=== PATIENT | female | born 1975 | race Caucasian/White ===

== ENCOUNTER 2018-09-05 00:56 | Inpatient (IN) ==
--- NOTE | 2018-09-05 02:02 | Emergency Department Note ---
Disposition Clinical Impression: Abscess of skin or subcutaneous tissue Qualifiers: Site of cutaneous abscess: extremity Site of cutaneous abscess of extremity: hand Laterality: right Qualified Code(s): L02.511 - Cutaneous abscess of right hand Cellulitis Qualifiers: Site of cellulitis: extremity Site of cellulitis of extremity: upper extremity Laterality: right Qualified Code(s): L03.113 - Cellulitis of right upper limb Disposition: Admitted As Inpatient Condition: Fair Time of Disposition: 05:30 General Adult HPI - General Chief complaint: ED Skin/Abscess/Foreign Body Stated complaint: Infected R hand Time Seen by Provider: 09/05/18 01:55 Source: patient Limitations: no limitations Nursing Notes Reviewed: Yes Vital Signs Reviewed: Yes - History of Present Illness HPI Narrative: 43-year-old female, with past medical history of hepatitis C, and a remote history of intravenous drug use of methamphetamine presents with a 2 day history of severe right hand pain, swelling, and redness. She states that she does not recall any open wounds to her hands, bug bites, and denies any recent drug use. She endorses fevers, chills, nausea. She endorses decreased range of motion in her right digits and hand. She denies vomiting,shortness of breath. Pain Scale: 10 - Related Data Previous Rx's Medication Instructions Recorded Loratadine/Pseudophed (12 HR) 1 each PO BID #14 tab.er.12h 06/19/17 [Claritin D (12HR)] Polymyxn-B/Trimeth Opth Drops 1 drop RIGHT EYE QID 7 Days #1 06/19/17 [Polytrim Opth Drops] bottle Cetirizine HCl [Zyrtec] 10 mg PO DAILY #30 tablet 06/27/17 Ciprofloxacin OPTH Soln [Ciloxan 2.5 drop BOTH EYES Q4H #1 bottle 06/27/17 OPTH Soln] Fluticasone Propionate Nasal 16 gm NS DAILY #1 bottle 06/27/17 [Flonase] Cephalexin [Keflex] 1,000 mg PO BID #14 capsule 06/22/18 Allergies Allergy/AdvReac Type Severity Reaction Status Date / Time No Known Allergies Allergy Verified 09/05/18 01:27 All systems ED: reviewed and negative except as stated. Constitutional: Reports: fever, chills, night sweats Cardiovascular: Denies: chest pain, palpitations Respiratory: Denies: cough, dyspnea Gastrointestinal: Reports: nausea. Denies: abdominal pain, vomiting Integumentary: Reports: other (Swelling and redness to right hand) Past Medical History - Past Medical History Medical history: Reports: hepatitis, liver disease Psychiatric history: Reports: no psych history - Social History Smoking Status: Current every day smoker Smokeless Tobacco Status: No Alcohol use: Reports: none Drug use: Reports: none Physical Exam GENERAL EXAM Vital signs noted, please see nurses notes. General: Well-developed, well-nourished patient lying in bed who appears non- toxic. Head: Atraumatic, normocephalic. Eyes: Sclera anicteric. ENT: Mucous membranes moist. Heart: Regular rate and rhythm without appreciable murmur, gallops, or rubs. Lungs: Normal respiratory pattern without distress, lungs clear to auscultation b/l. Abdomen: Soft, non-tender, non-distended, no guarding or peritoneal signs. Skin: No signs of tract cazares, there is significant erythema, to the right 3rd digit and right hand. Skin is hot. There are 2 open sores over the MCP of the third digit Neurologic: Awake and alert with normal speech and mental status. Pupils are eq ual. Moves all extremities equally well. No focal deficits or lateralizing signs. Psychiatric: Mood and affect appropriate. Musculoskeletal: Significant, nonpitting edema to the right upper extremity from the digits to the elbow. Range of motion is decreased in the right upper extremity due to pain No signs of DVT. - General Limitations: no limitations General appearance: alert Course - Reevaluation(s) Reevaluation #1: Patient has increased nausea, will give her 2 more milligrams of IV Zofran at this time. Time: 04:54 - Consultations Consultation #1: Spoke with Dr. Tse, is agreed to see the patient in the morning, once admitted to medicine Time: 04:55 Vital Signs Temperature 98.7 F 09/05/18 01:24 Pulse Rate 97 09/05/18 01:24 Respiratory Rate 18 09/05/18 01:24 Blood Pressure 128/84 09/05/18 01:24 O2 Sat by Pulse Oximetry 100 09/05/18 01:24 Temperature 98.1 F 09/05/18 06:29 Pulse Rate 87 09/05/18 06:29 Respiratory Rate 16 09/05/18 06:29 Blood Pressure 125/83 09/05/18 06:29 O2 Sat by Pulse Oximetry 100 09/05/18 06:29 Oxygen Delivery Oxygen Delivery Room Air Medical Decision Making - [facility] Narrative Medical decision making narrative: Patient was greeted upon her arrival to the emergency department. History and physical exam were obtained from the patient. Blood work was obtained from the patient including a lactate, blood cultures, and CBC. Tenosynovitis of the extensor tendon on the third digit is high on the differential. A CT scan of the right upper extremity will be ordered to rule out a more extensive infection. We will provide her with 1 mg of IV Dilaudid, Zofran for nausea, IV Zosyn, IV vancomycin,. The patient will be admitted to the hospital for IV antibiotics. CT scan revealed a 4.8 x 2.3 x 1 cm abscess from the distal metacarpal to the distal phalanx of the third digit. Case was discussed with Dr. Tse, orthopedics and he has agreed to see the patient in the morning. She will be admitted admitted to the hospitalist service for further management. - Medical Records Medical records reviewed: Yes I reviewed the patient's medical records. - Lab Data Lab results reviewed: Yes I reviewed the patient's lab results. Result diagrams: 09/05/18 02:40 09/05/18 02:40 Lab Results 09/05/18 09/05/18 09/05/18 Range/Units 02:40 02:40 02:40 WBC 13.6 H (4.3-11.1) K/mcL RBC 3.85 (3.82-4.97) M/mcL Hgb 11.7 (11.5-15.4) g/dL Hct 35.4 (35.3-44.9) % MCV 91.9 (83.0-100.0) fL MCH 30.4 (28.0-33.3) pg MCHC 33.1 (31.6-35.5) g/dL RDW 13.5 (11.5-14.5) % Plt Count 217 (140-400) K/mcL MPV 9.9 (9.4-12.4) fL Immature Gran % 0.4 (0-4) % Seg Neutrophils % 71.7 % Lymphocytes % 19.6 % Monocytes % 7.0 % Eosinophils % 1.0 % Basophils % 0.3 % Neutrophils # 9.8 H (1.6-8.9) K/mcL Lymphocytes # 2.7 (0.6-4.6) K/mcL Monocytes # 1.0 (0.0-1.3) K/mcL Eosinophils # 0.1 (0.0-0.6) K/mcL Basophils # 0.0 (0.0-0.2) K/mcL Sodium 138 (136-145) mEq/L Potassium 3.3 L (3.5-5.1) mEq/L Chloride 104 (98-107) mEq/L Carbon Dioxide 27 (23-29) mEq/L BUN 10 (6-20) mg/dL Creatinine 0.67 (0.60-1.20) mg/dL Est GFR ( Amer) > 60 (> 60) Est GFR (Non-Af Amer) > 60 (> 60) BUN/Creatinine Ratio 15 (6-26) Glucose 124 H (70-105) mg/dL Calculated Osmolality 286 (280-300) Lactic Acid 1.5 (0.5-2.2) mmol/L Calcium 8.4 L (8.6-10.3) mg/dL Magnesium 2.0 (1.6-2.6) mg/dL - Radiology Data Radiology results reviewed: Yes I reviewed the patient's radiology results. Upper Extremity CT 09/05/18 02:09 IMPRESSION: 4.8 x 2.3 x 1 cm cm soft tissue abscess superficial to the extensor tendon of the right 3rd finger extends from the level of the distal head of the 3rd metacarpal to the distal diaphysis of the proximal phalanx of the right 3rd finger. D/ / Dorie Diaz MD / Dorie Diaz MD Interpreting Provider: Dorie Diaz MD
[2018-09-05] MEDS ORDERED: *HR* HYDROmorphone (PF) 1 MG/ML SYRINGE IVP ONE (02:04)
[2018-09-05] MEDS ORDERED: Ondansetron 4 MG/2 ML VIAL IVP ONE ×4 (02:05→18:04)
[2018-09-05] MEDS ORDERED: Piperacillin/Tazobactam 3.375 GM in Water for inj. (sterile) 20 ML IVP ONE (02:08)
[2018-09-05] MEDS ORDERED: Isovue-370 500 ML BOTTLE IVP ONE (02:09)
[2018-09-05 02:59] LABS: Basophils % 0.3 %; Eosinophils # 0.1 K/mcL (0.0-0.6); Hematocrit 35.4 % (35.3-44.9); Hemoglobin 11.7 g/dL (11.5-15.4); Immature Granulocytes % 0.4 % (0-4); Lymphocytes # 2.7 K/mcL (0.6-4.6); Lymphocytes % 19.6 %; Mean Corpuscular HGB Conc 33.1 g/dL (31.6-35.5); Mean Corpuscular Hemoglobin 30.4 pg (28.0-33.3); Mean Corpuscular Volume 91.9 fL (83.0-100.0); Mean Platelet Volume 9.9 fL (9.4-12.4); Neutrophils # 9.8 K/mcL (1.6-8.9); Platelet Count 217 K/mcL (140-400); Red Blood Count 3.85 M/mcL (3.82-4.97); Red Cell Distribution Width 13.5 % (11.5-14.5); Segmented Neutrophils % 71.7 %; White Blood Count 13.6 K/mcL (4.3-11.1)
[2018-09-05 03:12] LABS: BUN/Creatinine Ratio 15 (6-26); Blood Urea Nitrogen 10 mg/dL (6-20); Calcium 8.4 mg/dL (8.6-10.3); Carbon Dioxide 27 mEq/L (23-29); Chloride 104 mEq/L (98-107); Glucose 124 mg/dL (70-105); Osmolality,Calculated 286 (280-300); Potassium 3.3 mEq/L (3.5-5.1); Sodium 138 mEq/L (136-145); eGFR For African Americans > 60 (> 60); eGFR For Non-African Americans > 60 (> 60)
[2018-09-05] MEDS ORDERED: 0.9 % Sodium Chloride 1,000 ML IVC ONE (04:32)
[2018-09-05] MEDS ORDERED: 0.9 % Sodium Chloride 1,000 ML IVC SCH ×2 (04:45→05:15)
[2018-09-05] MEDS ORDERED: Naloxone 0.4 MG/ML INJ IVP PRN ×2 (05:11→18:04)
--- NOTE | 2018-09-05 05:29 | Emergency Department Note ---
Disposition Clinical Impression: Abscess of skin or subcutaneous tissue Qualifiers: Site of cutaneous abscess: extremity Site of cutaneous abscess of extremity: hand Laterality: right Qualified Code(s): L02.511 - Cutaneous abscess of right hand Cellulitis Qualifiers: Site of cellulitis: extremity Site of cellulitis of extremity: upper extremity Laterality: right Qualified Code(s): L03.113 - Cellulitis of right upper limb Disposition: Admitted As Inpatient Condition: Fair Time of Disposition: 05:30 General Adult HPI - General Chief complaint: ED Skin/Abscess/Foreign Body Stated complaint: Infected R hand Time Seen by Provider: 09/05/18 01:55 Source: patient Limitations: no limitations Nursing Notes Reviewed: Yes Vital Signs Reviewed: Yes - History of Present Illness Pain Scale: 9 - Related Data Previous Rx's Medication Instructions Recorded Loratadine/Pseudophed (12 HR) 1 each PO BID #14 tab.er.12h 06/19/17 [Claritin D (12HR)] Polymyxn-B/Trimeth Opth Drops 1 drop RIGHT EYE QID 7 Days #1 06/19/17 [Polytrim Opth Drops] bottle Cetirizine HCl [Zyrtec] 10 mg PO DAILY #30 tablet 06/27/17 Ciprofloxacin OPTH Soln [Ciloxan 2.5 drop BOTH EYES Q4H #1 bottle 06/27/17 OPTH Soln] Fluticasone Propionate Nasal 16 gm NS DAILY #1 bottle 06/27/17 [Flonase] Cephalexin [Keflex] 1,000 mg PO BID #14 capsule 06/22/18 Allergies Allergy/AdvReac Type Severity Reaction Status Date / Time No Known Allergies Allergy Verified 09/05/18 01:27 Constitutional: Reports: fever, chills, night sweats Cardiovascular: Denies: chest pain, palpitations Respiratory: Denies: cough, dyspnea Gastrointestinal: Reports: nausea. Denies: abdominal pain, vomiting Integumentary: Reports: other (Swelling and redness to right hand) Past Medical History - Past Medical History Medical history: Reports: hepatitis, liver disease Psychiatric history: Reports: no psych history - Social History Smoking Status: Current every day smoker Smokeless Tobacco Status: No Alcohol use: Reports: none Drug use: Reports: none Physical Exam - General Limitations: no limitations General appearance: alert Course Vital Signs Temperature 98.7 F 09/05/18 01:24 Pulse Rate 97 07/20/19 01:24 Respiratory Rate 18 09/05/18 01:24 Blood Pressure 128/84 09/05/18 01:24 O2 Sat by Pulse Oximetry 100 09/05/18 01:24 Temperature 98.7 F 09/05/18 01:24 Pulse Rate 88 09/05/18 05:00 Respiratory Rate 20 09/05/18 05:00 Blood Pressure 134/96 09/05/18 05:00 O2 Sat by Pulse Oximetry 100 09/05/18 05:00 Oxygen Delivery Oxygen Delivery Room Air Medical Decision Making - Lab Data Lab results reviewed: Yes I reviewed the patient's lab results. Result diagrams: 09/05/18 02:40 09/05/18 02:40 Lab Results 09/05/18 09/05/18 09/05/18 Range/Units 02:40 02:40 02:40 WBC 13.6 H (4.3-11.1) K/mcL RBC 3.85 (3.82-4.97) M/mcL Hgb 11.7 (11.5-15.4) g/dL Hct 35.4 (35.3-44.9) % MCV 91.9 (83.0-100.0) fL MCH 30.4 (28.0-33.3) pg MCHC 33.1 (31.6-35.5) g/dL RDW 13.5 (11.5-14.5) % Plt Count 217 (140-400) K/mcL MPV 9.9 (9.4-12.4) fL Immature Gran % 0.4 (0-4) % Seg Neutrophils % 71.7 % Lymphocytes % 19.6 % Monocytes % 7.0 % Eosinophils % 1.0 % Basophils % 0.3 % Neutrophils # 9.8 H (1.6-8.9) K/mcL Lymphocytes # 2.7 (0.6-4.6) K/mcL Monocytes # 1.0 (0.0-1.3) K/mcL Eosinophils # 0.1 (0.0-0.6) K/mcL Basophils # 0.0 (0.0-0.2) K/mcL Sodium 138 (136-145) mEq/L Potassium 3.3 L (3.5-5.1) mEq/L Chloride 104 (98-107) mEq/L Carbon Dioxide 27 (23-29) mEq/L BUN 10 (6-20) mg/dL Creatinine 0.67 (0.60-1.20) mg/dL Est GFR ( Amer) > 60 (> 60) Est GFR (Non-Af Amer) > 60 (> 60) BUN/Creatinine Ratio 15 (6-26) Glucose 124 H (70-105) mg/dL Calculated Osmolality 286 (280-300) Lactic Acid 1.5 (0.5-2.2) mmol/L Calcium 8.4 L (8.6-10.3) mg/dL Magnesium 2.0 (1.6-2.6) mg/dL - Radiology Data Radiology results reviewed: Yes I reviewed the patient's radiology results. Upper Extremity CT 09/05/18 02:09 IMPRESSION: 4.8 x 2.3 x 1 cm cm soft tissue abscess superficial to the extensor tendon of the right 3rd finger extends from the level of the distal head of the 3rd metacarpal to the distal diaphysis of the proximal phalanx of the right 3rd finger. D/ / Dorie Diaz MD / Dorie Diaz MD Interpreting Provider: Dorie Diaz MD Critical Care Time Critical Care Time: Yes Total Critical Care Time: 35 Attestation: Critical care performed: Time is exclusive of separately billable procedures. Time includes: direct patient care, patient reassessment, coordination of patient care, interpretation of data (laboratory data, radiology data, and respiratory data), review of patient's medical records, medical consultation and documentation of patient care. Procedures included in critical care time: Procedures excluded from critical care time: Attestation Statement - Attestation Attestation: I, Fernando Cai MD, personally evaluated this patient and discussed their management with the resident physician. I reviewed the resident's note and agree with the documented findings, medical decision making, and plan of care. 43-year-old female presents to the emergency department with a complaint of infection of her right hand which started 4 days prior to arrival. She denies any known injury. She states that she just developed a blister on the top of her right middle finger several days ago. Since then she has had increasing pain and swelling and redness with increased size of the blister. Some drainage. She complains of severe pain in the hand and fingers with limited movement due to the pain and swelling. The swelling is also extending up the forearm to the elbow. She states she did have a fever at home yesterday of 102.3. She has been having chills and sweats. She admits to a history of IV drug abuse in the past and states that it has been several months since she used any IV drugs. She also states that she has never injected in her right arm or hand. On examination patient is a well-developed well-nourished female in no acute distress. She is alert and oriented 3. There is no cyanosis or diaphoresis. Breath sounds are clear and equal bilaterally. Heart regular rate and rhythm. Abdomen soft and nontender with normal bowel sounds. Patient has moderate s welling and erythema over the dorsum of the right hand particularly involving the middle finger. There is an area over the proximal phalanx of the right middle finger of blister formation with a small amount of serous drainage. There does seem to be some fluctuance over the third MCP joint area as well. Patient is unable to fully extend her index, middle, and ring fingers and has pain with passive extension. Concern for early extensor tenosynovitis. Labs reviewed. CT showed an abscess superficial to the extensor tendon over the proximal phalanx of the third finger. Blood cultures obtained and IV antibiotics initiated. Dr. Alberts discussed the patient with the orthopedist regional safety manager, Dr. Tse. He recommended admission to the hospitalists and will consult and see the patient this morning. The hospitalist, Dr. Ricketts, was consulted and accepted admission of the patient.
[2018-09-05] MEDS ORDERED: Ketorolac 30 MG/ML VIAL IVP ONE ×3 (05:38→18:04)
[2018-09-05] MEDS ORDERED: *HR* OxyCODONE/APAP 5/325 TABLET PO PRN (05:48)
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
[2018-09-05] MEDS ORDERED: Nicotine 14 MG PATCH.TD24 TD SCH (09:00)
--- NOTE | 2018-09-05 12:37 | Orthopedic Consult Note ---
Date of Encounter: 09/05/18 Time of Encounter: 12:20 History of Present Illness Chief complaint: Right hand pain and swelling HPI: Ms. Peña is a 43 year old [id number] female described a 4-5 day history of increased pain and swelling about the dorsum of the right hand centered over the long finger. Patient states that she started with several small blebs over the dorsum of the index and the long finger. The bleb on the index finger resolved with the long finger got progressively worse to the point she developed massive swelling redness and what appears to be pustule formation. Patient has had progressive difficulty with hand motion. She is admitted for further evaluation and management. Patient denies any trauma to the area. Patient does have a history of substance abuse but denies injecting the right hand. I reviewed the patient's completed history physical examination as well as the completed medical record and imaging studies. Pertinent orthopedic examination reveals a tearful 43-year-old woman in moderate distress secondary to right hand pain. Right hand reveals marked erythema and apparent abscess formation on the dorsum of the hand and the long finger. This is predominantly over the level of the MCP joint extending to the PIP joint. Hand motion is markedly limited due to the pain and swelling. Sensation is grossly intact. White blood cell count is 13.6. ESR and CRP were not performed. CT of the right upper extremity reveals a marked fluid/phlegmon collection on the dorsum of the hand consistent with an abscess. This is centered over the long metacarpal and finger. Impression: Abscess right upper extremity, suspected MRSA Recommendation: Incision and drainage is most appropriate in light of the abscess formation. Discussed with the patient that incision and drainage is utilized to evacuate the majority of the abscess and allow antibiotics to penetrate the surrounding area. We discussed that the surgery is not immediate fix for her problem. Discuss the potential risks and complications of surgery including bleeding, continued infection with need for additional surgery, neurovascular injury, stiffness, blood clots and continued difficulty with the hand in spite of treatment. Patient understands and agrees to proceed with surgery. She has signed informed consent for incision and drainage. We will proceed with surgery today when operating time is available. Thank you very much for allowing me to see and care for Mrs. Peña. Sincerely, Julito Tse,DO Past Med Surg Social Fam HX - Past Medical History Medical history: hepatitis, liver disease Additional medical history: hepatits C Psychiatric history: anxiety, bipolar, depression - Past Surgical History Surgical History: - Social History Smoking Status: Current every day smoker Smokeless Tobacco Status: No Alcohol use: none Drug use: methamphetamine Medications and Allergies Loratadine/Pseudophed (12 HR) [Claritin D (12HR)] 1 each PO BID #14 tab.er.12h 06/19/17 [Rx] Polymyxn-B/Trimeth Opth Drops [Polytrim Opth Drops] 1 drop RIGHT EYE QID 7 Days #1 bottle 06/19/17 [Rx] Cetirizine HCl [Zyrtec] 10 mg PO DAILY #30 tablet 06/27/17 [Rx] Ciprofloxacin OPTH Soln [Ciloxan OPTH Soln] 2.5 drop BOTH EYES Q4H #1 bottle 06/27/17 [Rx] Fluticasone Propionate Nasal [Flonase] 16 gm NS DAILY #1 bottle 06/27/17 [Rx] Cephalexin [Keflex] 1,000 mg PO BID #14 capsule 06/22/18 [Rx] Allergy/AdvReac Type Severity Reaction Status Date / Time No Known Allergies Allergy Verified 09/05/18 01:27 All Systems Reviewed: The remainder of the systems were reviewed and are negative Physical Exam - Constitutional Vitals: Temp Pulse Resp BP Pulse Ox 98.1 F 87 16 125/83 100 09/05/18 06:29 09/05/18 06:29 09/05/18 06:29 09/05/18 06:29 09/05/18 06:29 Results - Labs Result Diagrams: 09/05/18 02:40 09/05/18 02:40 Labs: Abnormal lab results WBC 13.6 K/mcL (4.3-11.1) H 09/05/18 02:40 Neutrophils # 9.8 K/mcL (1.6-8.9) H 09/05/18 02:40 Potassium 3.3 mEq/L (3.5-5.1) L 09/05/18 02:40 Glucose 124 mg/dL (70-105) H 09/05/18 02:40 Calcium 8.4 mg/dL (8.6-10.3) L 09/05/18 02:40 H & H 09/05/18 Range/Units 02:40 Hgb 11.7 (11.5-15.4) g/dL Hct 35.4 (35.3-44.9) % All other labs normal. - Diagnostic results Wrist/Hand CT: image reviewed Consult Discharge Plan - Plan Referrals: NONE,PCP [Primary Care Provider] -
--- NOTE | 2018-09-05 13:33 | Anesthesia Evaluation PreOp ---
Date of Encounter: 09/05/18 Time of Encounter: 13:32 - Past History Planned Operation: RIGHT HAND I&D Cardiac History: Denies any Significant Hx Pulmonary History: Smoker [employer]ER History: Other (POLY & IV DRUG ABUSE, DENIES ANY USE FOR LAST 2 MONTHS) Other Medical History: Hepatic (HEP C) Anesthesia History: No Prior Anesthetic Complications, Past Anesthesia Alcohol Use: none Drug use: methamphetamine Medications and Allergies Loratadine/Pseudophed (12 HR) [Claritin D (12HR)] 1 each PO BID #14 tab.er.12h 06/19/17 [Rx] Polymyxn-B/Trimeth Opth Drops [Polytrim Opth Drops] 1 drop RIGHT EYE QID 7 Days #1 bottle 06/19/17 [Rx] Cetirizine HCl [Zyrtec] 10 mg PO DAILY #30 tablet 06/27/17 [Rx] Ciprofloxacin OPTH Soln [Ciloxan OPTH Soln] 2.5 drop BOTH EYES Q4H #1 bottle 06/27/17 [Rx] Fluticasone Propionate Nasal [Flonase] 16 gm NS DAILY #1 bottle 06/27/17 [Rx] Cephalexin [Keflex] 1,000 mg PO BID #14 capsule 06/22/18 [Rx] Allergy/AdvReac Type Severity Reaction Status Date / Time No Known Allergies Allergy Verified 09/05/18 01:27 - Meds/Allergy Pre-op Review Medications Reviewed: Yes Allergies Reviewed: Yes Anesthesia Results - Labs 09/05/18 02:40 09/05/18 02:40 Anesthesia Exam Vital Signs/O2 Sat, Most Current Temp Pulse Resp BP Pulse Ox 98.1 F 87 16 125/83 100 09/05/18 06:29 09/05/18 06:29 09/05/18 06:29 09/05/18 06:29 09/05/18 06:29 - HEENT Mallampati: I Teeth: Normal, Missing - Cardiac Rhythm: Regular - Pulmonary Breath Sounds: bilateral Clear Anesthesia Assess/Plan ASA Score: 3 Anesthetic Plan: General, Regional Nerve Block Monitoring Plan: Standard Monitors Recovery Plan: PACU
[2018-09-05] MEDS ORDERED: *HR* HYDROmorphone (PF) 1 MG/ML SYRINGE IVP PRN ×2 (13:34→18:04)
[2018-09-05] MEDS ORDERED: *HR* Promethazine 25 MG/ML VIAL IVP PRN ×2 (13:34→18:04)
[2018-09-05] MEDS ORDERED: Albuterol 2.5 MG/3 ML NEBULIZER IH PRN ×2 (13:34→18:04)
[2018-09-05] MEDS ORDERED: *HR* OxyCODONE Immed Rel 5 MG TABLET PO PRN ×2 (13:34→18:04)
[2018-09-05] MEDS ORDERED: Acetaminophen IV 1,000 MG/100 ML INFUS..BTL IVPB ONE ×2 (13:34→18:04)
[2018-09-05] MEDS ORDERED: *HR* Midazolam HCl 2 MG/2 ML VIAL IVP PRN ×2 (13:34→18:04)
[2018-09-05 13:38] LABS: INR 1.1
[2018-09-05 13:40] LABS: Activated Partial Thrombo Time 30.7 Seconds (26.0-36.0)
[2018-09-05] MEDS ORDERED: Ropivacaine/PF 0.5% 30 ML VIAL ONE (14:11)
[2018-09-05 14:17] LABS: Hepatitis B Surface Antigen Nonreactive (Nonreactive)
[2018-09-05] MEDS ORDERED: *HR* FentaNYL (PF) 100 MCG/2 ML VIAL ONE (14:17)
[2018-09-05] MEDS ORDERED: *HR* Midazolam HCl 2 MG/2 ML VIAL ONE (14:17)
[2018-09-05 14:47] LABS: HIV-1&2 Antibody & p24 Ag Nonreactive (Nonreactive); Hepatitis A Antibody IgM Nonreactive (Nonreactive); Hepatitis B Core IgM Nonreactive (Nonreactive)
[2018-09-05 16:03] LABS: Hepatitis C Virus Antibody Reactive (Nonreactive)
--- NOTE | 2018-09-05 16:08 | Anesthesia Procedures ---
Date of Encounter: 09/05/18 Time of Encounter: 16:06 Procedures: Anesthesia - Nerve Block Procedure Date: 09/05/18 Time: 15:15 Checklist: Correct Patient Identifier, Correct procedure Correct side: Right Monitor Applied: EKG, BP, Pulse Oximetry Supplemental Oxygen via Nasal Cannula (L/min): 2 Sedation: Versed (mg): 2 Sedation: Fentanyl (mcg): 50 Indication: Post Op Analgesia Sterile Technique: Yes Ultrasound used: Yes Anatomy identified: Yes Visual spread of Local: Yes Neuro Stimulation: No Smooth Injection of Local: Yes (INCREMENTAL ASPIRATION & INJECTION) Pain with Injection of Local: No Prep: Chlorhexadine Needle: 21 x 100 mm Stimuplex Local: Ropivacaine (0.5%) Volume (cc): 25 Complications: None/effective block
--- NOTE | 2018-09-05 16:09 | Anesthesia Evaluation Post Op ---
Date of Encounter: 09/05/18 Time of Encounter: 17:40 - Discharge PostOp Status: Transfer Patient to floor (Patient's vital signs have been reviewed. Patient is stable postoperatively and has adequately recovered from anesthesia. Patient is determined to have stable airway patency and respiratory function including respiratory rate and oxygen saturation. Patient has a stable heart rate, blood pressure and adequate hydration. Patients mental status is acceptable. Patients temperature is appropriate. Pain and nausea are adequately controlled)
[2018-09-05] MEDS ORDERED: *HR* Propofol 200 MG/20 ML VIAL IVP ONE (16:28)
[2018-09-05] MEDS ORDERED: Dexamethasone 4 MG/ML VIAL ONE (16:33)
[2018-09-05] MEDS ORDERED: Lidocaine -MPF 2% 2 ML VIAL ONE (16:33)
[2018-09-05] MEDS ORDERED: Ondansetron 4 MG/2 ML VIAL ONE (16:33)
[2018-09-05] MEDS ORDERED: Ketorolac 30 MG/ML VIAL ONE (16:48)
--- NOTE | 2018-09-05 17:18 | Operative Note ---
Date of procedure: 09/05/18 Pre-op diagnosis: Abscess right hand Post-op diagnosis: same Procedure: Incision and drainage for abscess right hand and long finger Implants: None Complications: None Anesthesia: GETA, regional (Supraclavicular nerve block) Surgeon: Julito Tse Was there an patient support assistant present: No Estimated blood loss (cc): 4 Tourniquet Time (Minutes): 0 Specimen: Cultures Condition: stable Disposition: PACU Procedure in Detail: Gross findings: Preoperative examination revealed a fluctuant area on the dorsum of the right hand predominantly overlying the MCP joint of the long finger. Additionally there was a second area with necrotic-appearing skin with a fluctuant area over the dorsum of the proximal phalanx of the long finger. Each site was opened up individually with purulent material expressed individually. There was no evidence of distinct communication between the 2 sites.. Minimal amount of necrotic tissue was present. Each site was opened up individually but communication between the 2 was created over top of the extensor tendon which was intact. The wounds were irrigated and debrided and then packed with iodoform packing with the wound loosely approximated with 3-0 nylon suture. Procedure: Patient is saying the operating room and placed on the operating table in the supine position. General anesthesia was administered. A supraclavicular nerve block had been administered in the preoperative area for postoperative pain management. Once adequate level anesthesia had been obtained tourniquet was applied to the proximal forearm that was not used for the surgical procedure and the arm was prepped and draped in normal standard fashion for surgery. Utilizing the electrocautery knife the fluctuant area over the dorsum of the MCP joint of the long finger was opened with purulent material being expressed under pressure. This was cultured and the peroneal material was evacuated. Dissection was carried bluntly down to the tissues. The wound was irrigated. Attention was then turned distally. The area over top of the proximal phalanx was also opened with electrocautery knife and a different type of purulent material was encountered also under pressure and this too was cultured and then evacuated. Debridement of the skin edges was performed with tenotomy scissors. Limited blunt dissection was carried around the subcutaneous tissue in a ci rcumferential manner. At this time both wounds were copiously irrigated with saline solution. Any further necrotic tissue was debrided. The wounds were then individually packed with 1/2 inch iodoform packing and then loosely approximated with 3-0 nylon suture. Dressings consisting of 4 x 4's collection Apolinar wrap. Loosely applied and secured. Patient was now placed into a sling while the operative table. Patient was now awakened from anesthesia and then transferred to the postanesthesia care unit in stable and satisfactory condition. All sponge needle evidence for counts are correct. No specimens are sent for pathology. Cultures of the 2 distinct sites were sent for further analysis.
[2018-09-05] MEDS ORDERED: Ringers Solution, Lactated 1,000 ML IVC SCH (18:04)
[2018-09-05 19:39] LABS: Albumin 3.1 g/dL (3.5-5.7); Albumin/Globulin Ratio 1.3 (1.1-2.2); Bilirubin,Indirect 0.3 mg/dL (0.0-1.2); Bilirubin,Total 0.3 mg/dL (0.3-1.0); Globulin 2.3 g/dL (2.4-3.5); Total Protein 5.4 g/dL (6.4-8.9)
[2018-09-06 00:35] LABS: Amphetamine Screen,Urine Positive ng/mL (Cutoff=1000); Barbiturate Screen,Urine Negative ng/mL (Cutoff=200); Benzodiazepines Screen,Urine Positive ng/mL (Cutoff=200); Cannabinoid Screen,Urine Negative ng/mL (Cutoff = 50); Cocaine Screen,Urine Negative ng/mL (Cutoff= 300); Opiate Screen,Urine Negative ng/mL (Cutoff=300); Phencyclidine Screen,Urine Negative ng/mL (Cutoff=25)
[2018-09-06] MEDS: *HR* OxyCODONE/APAP 5/325 TABLET PO PRN ×3 (03:34→16:25)
[2018-09-06 05:17] LABS: Hematocrit 33.3 % (35.3-44.9); Hemoglobin 10.9 g/dL (11.5-15.4); Mean Corpuscular HGB Conc 32.7 g/dL (31.6-35.5); Mean Corpuscular Hemoglobin 30.2 pg (28.0-33.3); Mean Corpuscular Volume 92.2 fL (83.0-100.0); Mean Platelet Volume 10.2 fL (9.4-12.4); Platelet Count 229 K/mcL (140-400); Red Blood Count 3.61 M/mcL (3.82-4.97); Red Cell Distribution Width 13.2 % (11.5-14.5); White Blood Count 13.5 K/mcL (4.3-11.1)
[2018-09-06 05:30] LABS: BUN/Creatinine Ratio 17 (6-26); Blood Urea Nitrogen 10 mg/dL (6-20); Calcium 8.7 mg/dL (8.6-10.3); Carbon Dioxide 25 mEq/L (23-29); Chloride 106 mEq/L (98-107); Glucose 155 mg/dL (70-105); Osmolality,Calculated 284 (280-300); Potassium 4.2 mEq/L (3.5-5.1); Sodium 136 mEq/L (136-145); eGFR For African Americans > 60 (> 60); eGFR For Non-African Americans > 60 (> 60)
[2018-09-06] MEDS: Nicotine 14 MG PATCH.TD24 TD SCH (08:33)
[2018-09-06] MEDS: Piperacillin/Tazobactam 3.375 GM in 0.9 % Sodium Chloride Mini Bag 100 ML IVPB SCH ×2 (10:17→16:24)
--- NOTE | 2018-09-06 15:41 | Internal Med Progress Note ---
Hospitalist Progress Note - Encounter Date of Encounter: 09/06/18 Time of Encounter: 10:00 - Subjective Interval History: No major events overnight. Patient was seen this a.m. sHe denied fever, chills or night sweats. sHe has no nausea, vomiting or abdominal pain. Patient denied chest pain, shortness of breath or palpitation. She is a complaining about right arm pain. - Exam Vitals: Temp Pulse Resp BP Pulse Ox 98.3 F 83 15 118/78 99 09/06/18 12:08 09/06/18 12:08 09/06/18 12:08 09/06/18 12:08 09/06/18 12:08 Exam: General: Patient is alert, oriented 3. Head: Atraumatic, normal inspection, normocephalic. Eye: EOMI, PERRLA, no scleral icterus noted. ENT: Mucous membranes moist. No odontogenic infection noted. Neck: Normal inspection, no meningismus. Respiratory: No respiratory distress, rhonchi, or wheezes noted. Cardiovascular: Regular rate and regular rhythm, S1 and S2 audible. No murmurs, rubs, or gallops. GI: Soft, nondistended, normal bowel sounds. Extremities: Right upper extremity dressing. Neurological: Alert, oriented 3, no focal deficits. Psychiatric: normal affect, normal mood. Skin: Dry, intact, warm. Normal color. No rashes. - Assessment and Plan (1) Abscess of right index finger Current Visit: Yes Status: Acute (2) Gall bladder polyp Current Visit: Yes Status: Acute (3) DVT prophylaxis Current Visit: Yes Status: Acute (4) IVDU (intravenous drug user) Current Visit: Yes Status: Acute (5) Hepatitis C Current Visit: Yes Status: Chronic - Summary of Assessment and Plan Summary of Assessment and Plan: 43-year-old female with history of IV drug abuse, and treated hepatitis C, gallbladder polyp was admitted to the hospital due to right 3rd abscess. CT scan of the right hand revealed 4.82.31 cm soft tissue abscess superficial to the extensor tendon of the right third finger. Her symptoms are managed as following: R 3rd finger abscess: - s/p i&d POD 1 - On Vanco day 2, I added Zosyn day 1. - Awaiting surgical wound cultures. - Patient is afebrile, hemodynamically stable. Has leukocytosis. MRSA swab is positive - Pain control as per orthopedic surgery. Leukocytosis: - 2/2 above - Check CBC tomorrow IV drug abuse: - Patient denied injecting drugs for the past 3 months. However her UDS was positive for amphetamine. And treated hepatitis C: - Consulted the patient to follow outpatient with infectious disease or GI for treatment. Constipation: - We will start the patient on MiraLAX. DVT prophylaxis: heparin sc I reviewed independently all laboratory workup, pertinent images including x- rays and CT scans. I also reviewed independently and EKGs and my findings are in the body of my assessment and plan. I ordered the laboratory workup and images myself. I discussed finding with patient's, their families, RN's and consultants involved in the care of the patient. - Time Spent with Patient Total time spent is greater than 50% in coordination of care (as documented) at patient's floor/unit and/or counseling patient: Greater than 35 minutes Plan of Care Discussed with: patient Internal Medicine: Result - Labs CBC & Chem 7: 09/06/18 04:42 09/06/18 04:42 Labs: Short CBC 09/06/18 Range/Units 04:42 WBC 13.5 H (4.3-11.1) K/mcL Hgb 10.9 L (11.5-15.4) g/dL Hct 33.3 L (35.3-44.9) % Plt Count 229 (140-400) K/mcL BMP 09/06/18 04:42 Sodium 136 Potassium 4.2 Chloride 106 Carbon Dioxide 25 BUN 10 Creatinine 0.60 Glucose 155 H Calcium 8.7 Liver Function 09/05/18 Range/Units 19:11 Total Bilirubin 0.3 (0.3-1.0) mg/dL Direct Bilirubin 0.0 (0.0-0.2) mg/dL AST 10 L (13-39) Units/L ALT 8 (7-52) Units/L Alkaline Phosphatase 55 (34-104) Units/L Albumin 3.1 L (3.5-5.7) g/dL - ABG Interpretation ABG results: PT/INR, D-dimer PT 12.0 Seconds (9.4-12.1) 09/05/18 12:47 Consult Discharge Plan - Plan Referrals: NONE,PCP [Primary Care Provider] - (5) Hepatitis C Qualifiers: Viral hepatitis chronicity: chronic Hepatic coma status: without hepatic coma Qualified Code(s): B18.2 - Chronic viral hepatitis C
--- NOTE | 2018-09-06 17:30 | Orthopedics Progress Note ---
Date of Encounter: 09/06/18 Time of Encounter: 17:27 Subjective Principal diagnosis: Status post incision and drainage right hand and long finger Interval history: 09/06/2018. Patient is postop day #1 after having had incision and drainage of a abscess on the dorsum of the right hand overlying the long finger metacarpal as well as directly over the right long finger in the region of the proximal phalanx. Patient is feeling better today. She is having some burning sensation on the dorsum of the hand. Vital signs are stable. Patient is afebrile. Packing was removed from the wounds. There is no evidence of acute drainage. Skin edges appear viable at this time. White blood cell count is stable. Wound cultures from the ER or growing staph, probable MRSA. Intraoperative cultures are pending. Impression: POD #1 I&D right hand and long finger abscess, suspected MRSA Recommendation: I told the packing today. We will maintain a bulky dressing for at least the next 24 hours and then can start some local wound care. Patient instructed in working and moving the hand and fingers as much as possible to recover motion and to help muscle pumping to mobilize fluid. Continue with IV antibiotics pending operative culture results. Will probably need 10 days to 2 weeks of oral antibiotics after discharge. Objective Vital signs: Vital Signs Temp Pulse Resp BP Pulse Ox 09/06/18 15:50 98.0 F 87 15 130/80 100 09/06/18 12:08 98.3 F 83 15 118/78 99 09/06/18 07:50 98.2 F 69 15 123/73 99 09/06/18 03:41 98.0 F 92 17 128/78 100 09/05/18 23:56 98.0 F 88 17 127/73 100 09/05/18 21:25 98.5 F 75 18 110/75 99 09/05/18 20:40 95 09/05/18 20:25 98.7 F 71 17 105/69 99 09/05/18 17:44 98.5 F 65 13 106/72 100 09/05/18 17:34 98.5 F 79 14 110/72 100 Intake and Output 09/06/18 09/06/18 09/06/18 07:59 15:59 23:59 Intake Total 480 / 2240 1420 / 2240 340 / 2240 Output Total 1000 / 1000 Balance -520 / 1240 1420 / 1240 340 / 1240 Intake: IV Fluids 250 / 350 100 / 350 Zosyn 3.375 GM In 0.9 % Sodium 100 / 100 Chloride (Mini-Bag +) 100 ML @ 25 mls/hr IVPB Q8HR [facility] Rx#: [id number] Vancocin 750 MG In 0.9 % Sodium 250 / 250 Chloride 250 ML @ 250 mls/hr IVPB Q12H [facility] Rx#:[id number] Oral 480 / 1890 1170 / 1890 240 / 1890 Output: Urine 1000 / 1000 Other: Meal Breakfast Lunch Percent of Meal Consumed 100% 50% # Voids 1 Incision: inflamed, clean and dry - Labs CBC & BMP: 09/06/18 04:42 09/06/18 04:42 Labs: Abnormal lab results WBC 13.5 K/mcL (4.3-11.1) H 09/06/18 04:42 RBC 3.61 M/mcL (3.82-4.97) L 09/06/18 04:42 Hgb 10.9 g/dL (11.5-15.4) L 09/06/18 04:42 Hct 33.3 % (35.3-44.9) L 09/06/18 04:42 Neutrophils # 9.8 K/mcL (1.6-8.9) H 09/05/18 02:40 Potassium 3.3 mEq/L (3.5-5.1) L 09/05/18 02:40 Glucose 155 mg/dL (70-105) H 09/06/18 04:42 Calcium 8.4 mg/dL (8.6-10.3) L 09/05/18 02:40 AST 10 Units/L (13-39) L 09/05/18 19:11 Serum Total Protein 5.4 g/dL (6.4-8.9) L 09/05/18 19:11 Albumin 3.1 g/dL (3.5-5.7) L 09/05/18 19:11 Globulin 2.3 g/dL (2.4-3.5) L 09/05/18 19:11 Ur Amphetamines Screen Positive ng/mL (Cwwyqh=9670) H 09/06/18 00:08 U Benzodiazepines Scrn Positive ng/mL (Ommjzo=683) H 09/06/18 00:08 Hepatitis C Ab Screen Reactive (Nonreactive) H 09/05/18 12:47 Consult Discharge Plan - Plan Referrals: NONE,PCP [Primary Care Provider] -
[2018-09-06] MEDS: *HR* Heparin 5,000 UNIT/ML VIAL SQ SCH (18:08)
[2018-09-06] MEDS ORDERED: traMADol 50 MG TABLET PO ONE (20:54)
[2018-09-07] MEDS: Piperacillin/Tazobactam 3.375 GM in 0.9 % Sodium Chloride Mini Bag 100 ML IVPB SCH ×3 (00:30→17:43)
[2018-09-07] MEDS: *HR* OxyCODONE/APAP 5/325 TABLET PO PRN ×3 (00:30→17:42)
[2018-09-07] MEDS: *HR* Heparin 5,000 UNIT/ML VIAL SQ SCH ×2 (06:26→17:44)
[2018-09-07 06:28] LABS: Mean Corpuscular HGB Conc 32.3 g/dL (31.6-35.5); Mean Corpuscular Hemoglobin 30.1 pg (28.0-33.3); Mean Corpuscular Volume 93.4 fL (83.0-100.0); Mean Platelet Volume 10.1 fL (9.4-12.4); Platelet Count 231 K/mcL (140-400); Red Blood Count 3.32 M/mcL (3.82-4.97); Red Cell Distribution Width 13.4 % (11.5-14.5); White Blood Count 8.6 K/mcL (4.3-11.1)
[2018-09-07 06:44] LABS: BUN/Creatinine Ratio 16 (6-26); Blood Urea Nitrogen 12 mg/dL (6-20); Carbon Dioxide 23 mEq/L (23-29); Chloride 106 mEq/L (98-107); Glucose 123 mg/dL (70-105); Osmolality,Calculated 293 (280-300); Potassium 3.3 mEq/L (3.5-5.1); Sodium 141 mEq/L (136-145); eGFR For African Americans > 60 (> 60); eGFR For Non-African Americans > 60 (> 60)
[2018-09-07] MEDS ORDERED: Potassium Chloride Elixir 20 MEQ/15 ML UDC PO ONE (08:23)
[2018-09-07] MEDS: Nicotine 14 MG PATCH.TD24 TD SCH (09:18)
--- NOTE | 2018-09-07 13:10 | Internal Med Progress Note ---
Hospitalist Progress Note - Encounter Date of Encounter: 09/07/18 Time of Encounter: 10:00 - Subjective Interval History: No major events overnight. Patient was seen this a.m. sHe denied fever, chills or night sweats. sHe has no nausea, vomiting or abdominal pain. Patient denied chest pain, shortness of breath or palpitation. She is complaining about right arm pain right above her dressing and I am swelling. Contacted orthopedic surgery - Exam Vitals: Temp Pulse Resp BP Pulse Ox 98 F 84 15 138/47 97 09/07/18 11:29 09/07/18 11:29 09/07/18 07:10 09/07/18 11:29 09/07/18 11:29 Exam: General: Patient is alert, oriented 3. Head: Atraumatic, normal inspection, normocephalic. Eye: EOMI, PERRLA, no scleral icterus noted. ENT: Mucous membranes moist. No odontogenic infection noted. Neck: Normal inspection, no meningismus. Respiratory: No respiratory distress, rhonchi, or wheezes noted. Cardiovascular: Regular rate and regular rhythm, S1 and S2 audible. No murmurs, rubs, or gallops. GI: Soft, nondistended, normal bowel sounds. Extremities: Right upper extremity dressing, right forearm swelling and tenderness with palpation. Neurological: Alert, oriented 3, no focal deficits. Psychiatric: normal affect, normal mood. Skin: Dry, intact, warm. Normal color. No rashes. - Assessment and Plan (1) Abscess of right index finger Current Visit: Yes Status: Acute (2) Gall bladder polyp Current Visit: Yes Status: Acute (3) DVT prophylaxis Current Visit: Yes Status: Acute (4) IVDU (intravenous drug user) Current Visit: Yes Status: Acute (5) Hepatitis C Current Visit: Yes Status: Chronic - Summary of Assessment and Plan Summary of Assessment and Plan: 43-year-old female with history of IV drug abuse, and treated hepatitis C, gallbladder polyp was admitted to the hospital due to right 3rd abscess. CT scan of the right hand revealed 4.82.31 cm soft tissue abscess superficial to the extensor tendon of the right third finger. Her symptoms are managed as following: R 3rd finger abscess: - s/p i&d POD 2 - On Vanco day 3, I added Zosyn day 2. - Awaiting surgical wound cultures. Pending reports positive for gram-positive cocci, most likely MRSA - Patient is afebrile, hemodynamically stable. leukocytosis resolved. MRSA swab is positive - Pain control as per orthopedic surgery. Leukocytosis: - 2/2 above, resolved IV drug abuse: - Patient denied injecting drugs for the past 3 months. However her UDS was positive for amphetamine. And treated hepatitis C: - Consulted the patient to follow outpatient with infectious disease or GI for treatment. Constipation: - We will start the patient on MiraLAX. Gallbladder polyp: - Found incidentally on ultrasound abdomen. Follow-up as outpatient with ultrasound in 4 month period DVT prophylaxis: heparin sc I reviewed independently all laboratory workup, pertinent images including x- rays and CT scans. I also reviewed independently and EKGs and my findings are in the body of my assessment and plan. I ordered the laboratory workup and images myself. I discussed finding with patient's, their families, RN's and consultants involved in the care of the patient. - Time Spent with Patient Total time spent is greater than 50% in coordination of care (as documented) at patient's floor/unit and/or counseling patient: Greater than 35 minutes Plan of Care Discussed with: patient Internal Medicine: Result - Labs CBC & Chem 7: 09/07/18 05:26 09/07/18 05:26 Labs: Short CBC 09/07/18 Range/Units 05:26 WBC 8.6 (4.3-11.1) K/mcL Hgb 10.0 L (11.5-15.4) g/dL Hct 31.0 L (35.3-44.9) % Plt Count 231 (140-400) K/mcL BMP 09/07/18 05:26 Sodium 141 Potassium 3.3 L Chloride 106 Carbon Dioxide 23 BUN 12 Creatinine 0.74 Glucose 123 H Calcium 8.0 L - ABG Interpretation ABG results: PT/INR, D-dimer PT 12.0 Seconds (9.4-12.1) 09/05/18 12:47 Consult Discharge Plan - Plan Referrals: NONE,PCP [Primary Care Provider] - (5) Hepatitis C Qualifiers: Viral hepatitis chronicity: chronic Hepatic coma status: without hepatic coma Qualified Code(s): B18.2 - Chronic viral hepatitis C
[2018-09-07] MEDS ORDERED: Ketorolac 30 MG/ML VIAL IVP ONE (13:36)
--- NOTE | 2018-09-07 21:28 | Orthopedics Progress Note ---
Date of Encounter: 09/07/18 Time of Encounter: 21:26 Subjective Principal diagnosis: Status post incision and drainage right hand and long finger Interval history: 09/06/2018. Patient is postop day #1 after having had incision and drainage of a abscess on the dorsum of the right hand overlying the long finger metacarpal as well as directly over the right long finger in the region of the proximal phalanx. Patient is feeling better today. She is having some burning sensation on the dorsum of the hand. Vital signs are stable. Patient is afebrile. Packing was removed from the wounds. There is no evidence of acute drainage. Skin edges appear viable at this time. White blood cell count is stable. Wound cultures from the ER or growing staph, probable MRSA. Intraoperative cultures are pending. Impression: POD #1 I&D right hand and long finger abscess, suspected MRSA Recommendation: I told the packing today. We will maintain a bulky dressing for at least the next 24 hours and then can start some local wound care. Patient instructed in working and moving the hand and fingers as much as possible to recover motion and to help muscle pumping to mobilize fluid. Continue with IV antibiotics pending operative culture results. Will probably need 10 days to 2 weeks of oral antibiotics after discharge. 09/07/2018. Patient POD number to I&D abscess right hand. Patient is prepared having persistent pain is complaining of swelling of the arm. Vital signs are stable. Patient is afebrile. Dressings were taken down. Wounds show some desquamated skin and some necrotic tissue but no evidence of continued purulence. Overall exam reveals the hand to be markedly improved. White blood cell count is normal. Cultures are growing gram-positive cocci, suspect will be MRSA as seen in the peripheral wound culture performed. Impression: POD number to I&D right hand and long finger Recommendation: Wounds are redressed. We will obtained consultation with wound care to provide optimal treatment to allow for continued recovery and wound healing. Continue IV antibiotics pending final culture results and conversion to oral medications for an additional period of time. Objective Vital signs: Vital Signs Temp Pulse Resp BP Pulse Ox 09/07/18 19:54 98.1 F 80 16 122/75 99 09/07/18 15:43 98.3 F 72 16 123/79 97 09/07/18 11:29 98 F 84 138/47 97 09/07/18 08:00 98.1 F 82 131/79 98 09/07/18 07:10 98.0 F 76 15 125/82 99 09/07/18 04:55 98.2 F 71 16 117/69 95 09/07/18 00:24 97.7 F 84 17 142/80 94 Intake and Output 09/07/18 09/07/18 09/07/18 07:59 15:59 23:59 Intake Total 100 / 1110 460 / 1110 550 / 1110 Balance 100 / 1110 460 / 1110 550 / 1110 Intake: IV Fluids 100 / 200 100 / 200 Zosyn 3.375 GM In 0.9 % Sodium 100 / 200 100 / 200 Chloride (Mini-Bag +) 100 ML @ 25 mls/hr IVPB Q8HR [facility] Rx#: [id number] Oral 360 / 910 550 / 910 Other: Meal Breakfast Dinner Percent of Meal Consumed 80% 85% # Voids 1 1 - Labs CBC & BMP: 09/07/18 05:26 09/07/18 05:26 Labs: Abnormal lab results WBC 13.5 K/mcL (4.3-11.1) H 09/06/18 04:42 RBC 3.32 M/mcL (3.82-4.97) L 09/07/18 05:26 Hgb 10.0 g/dL (11.5-15.4) L 09/07/18 05:26 Hct 31.0 % (35.3-44.9) L 09/07/18 05:26 Neutrophils # 9.8 K/mcL (1.6-8.9) H 09/05/18 02:40 Potassium 3.3 mEq/L (3.5-5.1) L 09/07/18 05:26 Glucose 123 mg/dL (70-105) H 09/07/18 05:26 Calcium 8.0 mg/dL (8.6-10.3) L 09/07/18 05:26 AST 10 Units/L (13-39) L 09/05/18 19:11 Serum Total Protein 5.4 g/dL (6.4-8.9) L 09/05/18 19:11 Albumin 3.1 g/dL (3.5-5.7) L 09/05/18 19:11 Globulin 2.3 g/dL (2.4-3.5) L 09/05/18 19:11 Vancomycin Trough 37 mcg/mL (5-10) H 09/06/18 19:13 Ur Amphetamines Screen Positive ng/mL (Qniwmf=8596) H 09/06/18 00:08 U Benzodiazepines Scrn Positive ng/mL (Gciule=969) H 09/06/18 00:08 Hepatitis C Ab Screen Reactive (Nonreactive) H 09/05/18 12:47 Consult Discharge Plan - Plan Referrals: NONE,PCP [Primary Care Provider] -
[2018-09-07] MEDS ORDERED: *HR* OxyCODONE Immed Rel 5 MG TABLET PO ONE (22:29)
[2018-09-08] MEDS: Piperacillin/Tazobactam 3.375 GM in 0.9 % Sodium Chloride Mini Bag 100 ML IVPB SCH ×3 (02:24→19:21)
[2018-09-08] MEDS: *HR* OxyCODONE/APAP 5/325 TABLET PO PRN ×4 (02:34→22:49)
[2018-09-08] MEDS: *HR* Heparin 5,000 UNIT/ML VIAL SQ SCH ×2 (05:47→18:04)
[2018-09-08] MEDS: Nicotine 14 MG PATCH.TD24 TD SCH (07:47)
[2018-09-08 10:10] LABS: Hematocrit 31.6 % (35.3-44.9); Hemoglobin 10.4 g/dL (11.5-15.4); Mean Corpuscular HGB Conc 32.9 g/dL (31.6-35.5); Mean Platelet Volume 9.6 fL (9.4-12.4); Platelet Count 255 K/mcL (140-400); Red Blood Count 3.36 M/mcL (3.82-4.97); Red Cell Distribution Width 13.2 % (11.5-14.5); White Blood Count 7.5 K/mcL (4.3-11.1)
[2018-09-08 10:29] LABS: BUN/Creatinine Ratio 13 (6-26); Blood Urea Nitrogen 9 mg/dL (6-20); Calcium 8.7 mg/dL (8.6-10.3); Carbon Dioxide 30 mEq/L (23-29); Chloride 105 mEq/L (98-107); Creatine Kinase 16 Units/L (30-223); Glucose 89 mg/dL (70-105); Osmolality,Calculated 288 (280-300); Potassium 3.9 mEq/L (3.5-5.1); Sodium 140 mEq/L (136-145); eGFR For African Americans > 60 (> 60); eGFR For Non-African Americans > 60 (> 60)
--- NOTE | 2018-09-08 17:13 | Internal Med Progress Note ---
Hospitalist Progress Note - Encounter Date of Encounter: 09/08/18 Time of Encounter: 10:00 - Subjective Interval History: No major events overnight. Patient was seen this a.m. sHe denied fever, chills or night sweats. sHe has no nausea, vomiting or abdominal pain. Patient denied chest pain, shortness of breath or palpitation. Her pain is improving and her arm swelling is better. - Exam Vitals: Temp Pulse Resp BP Pulse Ox 97.9 F 75 13 152/88 98 09/08/18 14:49 09/08/18 14:49 09/08/18 14:49 09/08/18 14:49 09/08/18 14:49 Exam: General: Patient is alert, oriented 3. Head: Atraumatic, normal inspection, normocephalic. Eye: EOMI, PERRLA, no scleral icterus noted. ENT: Mucous membranes moist. No odontogenic infection noted. Neck: Normal inspection, no meningismus. Respiratory: No respiratory distress, rhonchi, or wheezes noted. Cardiovascular: Regular rate and regular rhythm, S1 and S2 audible. No murmurs, rubs, or gallops. GI: Soft, nondistended, normal bowel sounds. Extremities: Right upper extremity dressing, Neurological: Alert, oriented 3, no focal deficits. Psychiatric: normal affect, normal mood. Skin: Dry, intact, warm. Normal color. No rashes. - Assessment and Plan (1) Abscess of right index finger Current Visit: Yes Status: Acute (2) Gall bladder polyp Current Visit: Yes Status: Acute (3) DVT prophylaxis Current Visit: Yes Status: Acute (4) IVDU (intravenous drug user) Current Visit: Yes Status: Acute (5) Hepatitis C Current Visit: Yes Status: Chronic - Summary of Assessment and Plan Summary of Assessment and Plan: 43-year-old female with history of IV drug abuse, and treated hepatitis C, gallbladder polyp was admitted to the hospital due to right 3rd abscess. CT scan of the right hand revealed 4.82.31 cm soft tissue abscess superficial to the extensor tendon of the right third finger. Her symptoms are managed as following: R 3rd finger abscess: - s/p i&d POD 3 - On Vanco day 4. Wound cultures growing MRSA. We will stop vancomycin and switched to Bactrim. - Patient is afebrile, hemodynamically stable. leukocytosis resolved. - Pain control as per orthopedic surgery. - One care is consulted, appreciate recommendation. Leukocytosis: - 2/2 above, resolved IV drug abuse: - Patient denied injecting drugs for the past 3 months. However her UDS was positive for amphetamine. And treated hepatitis C: - Consulted the patient to follow outpatient with infectious disease or GI for treatment. Constipation: - on MiraLAX. Gallbladder polyp: - Found incidentally on ultrasound abdomen. Follow-up as outpatient with ultrasound in 4 month period DVT prophylaxis: heparin sc Disposition: Discharge tomorrow - Time Spent with Patient Total time spent is greater than 50% in coordination of care (as documented) at patient's floor/unit and/or counseling patient: Plan of Care Discussed with: patient Internal Medicine: Result - Labs CBC & Chem 7: 09/08/18 09:51 09/08/18 09:51 Labs: Short CBC 09/08/18 Range/Units 09:51 WBC 7.5 (4.3-11.1) K/mcL Hgb 10.4 L (11.5-15.4) g/dL Hct 31.6 L (35.3-44.9) % Plt Count 255 (140-400) K/mcL BMP 09/08/18 09:51 Sodium 140 Potassium 3.9 Chloride 105 Carbon Dioxide 30 H BUN 9 Creatinine 0.68 Glucose 89 Calcium 8.7 - ABG Interpretation ABG results: PT/INR, D-dimer PT 12.0 Seconds (9.4-12.1) 09/05/18 12:47 Consult Discharge Plan - Plan Referrals: NONE,PCP [Primary Care Provider] - (5) Hepatitis C Qualifiers: Viral hepatitis chronicity: chronic Hepatic coma status: without hepatic coma Qualified Code(s): B18.2 - Chronic viral hepatitis C
[2018-09-08] MEDS: Ringers Solution, Lactated 1,000 ML IVC SCH (19:18)
[2018-09-08] MEDS: Sulfamethoxazole/Trimeth DS 1 EACH TABLET PO SCH (22:49)
[2018-09-09] MEDS ORDERED: *HR* OxyCODONE/APAP 5/325 TABLET PO ONE (04:10)
[2018-09-09] MEDS: *HR* Heparin 5,000 UNIT/ML VIAL SQ SCH ×2 (05:36→20:38)
[2018-09-09] MEDS ORDERED: Acetaminophen IV 500 MG/50 ML INFUS..BTL IVPB ONE (06:07)
[2018-09-09] MEDS ORDERED: Aminoglycoside Consult 1 EACH MC ONE (07:25)
[2018-09-09] MEDS: *HR* OxyCODONE/APAP 5/325 TABLET PO PRN ×3 (09:59→23:18)
[2018-09-09] MEDS: Sulfamethoxazole/Trimeth DS 1 EACH TABLET PO SCH ×2 (09:59→20:23)
[2018-09-09] MEDS: Nicotine 14 MG PATCH.TD24 TD SCH (09:59)
--- NOTE | 2018-09-09 14:55 | Internal Med Progress Note ---
Hospitalist Progress Note - Encounter Date of Encounter: 09/09/18 Time of Encounter: 11:00 - Subjective Interval History: No major events overnight. Patient was seen this a.m. He denied fever, chills or night sweats. He has no nausea, vomiting or abdominal pain. Patient denied chest pain, shortness of breath or palpitation. Her right arm pain is improving - Exam Vitals: Temp Pulse Resp BP Pulse Ox 98.1 F 81 16 141/88 99 09/09/18 11:40 09/09/18 11:40 09/09/18 11:40 09/09/18 11:40 09/09/18 11:40 Exam: General: Patient is alert, oriented 3. Head: Atraumatic, normal inspection, normocephalic. Eye: EOMI, PERRLA, no scleral icterus noted. ENT: Mucous membranes moist. No odontogenic infection noted. Neck: Normal inspection, no meningismus. Respiratory: No respiratory distress, rhonchi, or wheezes noted. Cardiovascular: Regular rate and regular rhythm, S1 and S2 audible. No murmurs, rubs, or gallops. GI: Soft, nondistended, normal bowel sounds. Extremities: Right upper extremity dressing, Neurological: Alert, oriented 3, no focal deficits. Psychiatric: normal affect, normal mood. Skin: Dry, intact, warm. Normal color. No rashes. - Assessment and Plan (1) Abscess of right index finger Current Visit: Yes Status: Acute (2) IVDU (intravenous drug user) Current Visit: Yes Status: Acute (3) Hepatitis C Current Visit: Yes Status: Chronic (4) DVT prophylaxis Current Visit: Yes Status: Acute (5) Gall bladder polyp Current Visit: Yes Status: Acute - Summary of Assessment and Plan Summary of Assessment and Plan: 43-year-old female with history of IV drug abuse, and treated hepatitis C, gallbladder polyp was admitted to the hospital due to right 3rd abscess. CT scan of the right hand revealed 4.82.31 cm soft tissue abscess superficial to the extensor tendon of the right third finger. Her symptoms are managed as following: R 3rd finger abscess: - s/p i&d POD 4 - was on Vanco for 4 days. Wound cultures growing MRSA. stop vancomycin and switched to Bactrim. - Patient is afebrile, hemodynamically stable. leukocytosis resolved. - wound care is consulted, appreciate recommendation. Leukocytosis: - 2/2 above, resolved IV drug abuse: - Patient denied injecting drugs for the past 3 months. However her UDS was positive for amphetamine. And treated hepatitis C: - Consulted the patient to follow outpatient with infectious disease or GI for treatment. Constipation: - on MiraLAX. Gallbladder polyp: - Found incidentally on ultrasound abdomen. Follow-up as outpatient with abby emmanuel in 4 month period DVT prophylaxis: heparin sc Disposition: Discharge tomorrow - Time Spent with Patient Total time spent is greater than 50% in coordination of care (as documented) at patient's floor/unit and/or counseling patient: Plan of Care Discussed with: patient Internal Medicine: Result - Labs CBC & Chem 7: 09/08/18 09:51 09/08/18 09:51 - ABG Interpretation ABG results: PT/INR, D-dimer PT 12.0 Seconds (9.4-12.1) 09/05/18 12:47 - Impressions Impressions Liver Ultrasound 09/05/18 00:00 IMPRESSION: No evidence of liver mass. Consider liver protocol MRI or CT for further evaluation if indicated. 4 mm gallbladder polyp with a wide base. Consider follow-up ultrasound in 6 months to ensure stability. D/ / Viktor Davis MD / Viktor Davis MD Interpreting Provider: Viktor Davis MD Upper Extremity CT 09/05/18 02:09 IMPRESSION: 4.8 x 2.3 x 1 cm cm soft tissue abscess superficial to the extensor tendon of the right 3rd finger extends from the level of the distal head of the 3rd metacarpal to the distal diaphysis of the proximal phalanx of the right 3rd finger. D/ / Dorie Diaz MD / Dorie Diaz MD Interpreting Provider: Dorie Diaz MD Consult Discharge Plan - Plan Referrals: NONE,PCP [Primary Care Provider] - (3) Hepatitis C Qualifiers: Viral hepatitis chronicity: chronic Hepatic coma status: without hepatic coma Qualified Code(s): B18.2 - Chronic viral hepatitis C
[2018-09-10] MEDS: *HR* OxyCODONE/APAP 5/325 TABLET PO PRN (06:49)
[2018-09-10] MEDS: *HR* Heparin 5,000 UNIT/ML VIAL SQ SCH (06:49)
[2018-09-10] MEDS ORDERED: Ondansetron 4 MG/2 ML VIAL IVP PRN (09:06)
[2018-09-10] MEDS: Nicotine 14 MG PATCH.TD24 TD SCH (09:25)
[2018-09-10] MEDS: Sulfamethoxazole/Trimeth DS 1 EACH TABLET PO SCH (09:27)
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
[2018-09-10 10:39] VITALS: BP 116/75
== END 2018-09-10 15:05 | disposition home or self-care (01) | DRG 364 ==
LOC: 3NENU 00:56 → EMEROOARM 00:56 → SUATTDRO 05:14 → MERGE 05:14 → 3NENU 05:53
PROVIDERS: ADMIT Internal Medicine Nephrology; ATTEND Internal Medicine